=== PATIENT | male | born 1970 | race Caucasian/White ===

== ENCOUNTER 2016-12-11 22:55 | Emergency (ER) | payer BC ==
[~2016-12-11] VITALS: Ht 177.8 cm; Wt 89.3 kg
[2016-12-11 23:02] VITALS: TEMP 36.7; Ht 177.8 cm; Wt 89.3 kg
[2016-12-12 00:45] LABS: BASO % 0.5 %; BASO ABS # 0.03 K/uL (0-0.2); COMPLETE YES; EOS % 2.6 %; HEMATOCRIT 44.2 % (42-52); IG% 0.3 %; LYMPH % 34.6 %; LYMPH ABS # 2.27 K/uL (1.2-3.4); MEAN CELL VOLUME 85.2 fL (80-100); MEAN CORPUSCULAR HEMOGLOBIN 30.3 pg (25-34); MEAN CORPUSCULAR HGB CONC 35.5 g/dl (32-36); MEAN PLATELET VOLUME 11.7 fL (7.4-10.4); MONO % 11.7 %; NEUT % 50.3 %; PLATELET COUNT 174 K/uL (130-400); RED BLOOD COUNT 5.19 M/uL (4.7-6.1); WHITE BLOOD COUNT 6.56 K/uL (4.8-10.8)
[2016-12-12 00:46] LABS: POINT OF CARE TROPONIN I < 0.030 ng/ml (0-0.045)
[2016-12-12 01:02] LABS: ALT/SGPT 43 U/L (12-78); AST/SGOT 17 U/L (15-37); BLOOD UREA NITROGEN 11 mg/dl (7-18); BUN/CREATININE RATIO 14.4 (10-20); CALCIUM 8.4 mg/dl (8.5-10.1); CARBON DIOXIDE 25 mmol/L (21-32); CHLORIDE 109 mmol/L (98-107); CREATININE 0.77 mg/dl (0.60-1.40); GLUCOSE 91 mg/dl (70-99); POTASSIUM 3.5 mmol/L (3.5-5.1); SODIUM 141 mmol/L (136-145)
[2016-12-12 01:07] LABS: ALKALINE PHOSPHATASE 94 U/L (45-117)
[2016-12-12 02:40] VITALS: BP 133/75; PULSE 63; O2SAT 98
--- NOTE | 2016-12-12 06:12 | EMERGENCY ROOM VISIT NOTE ---
History First contact with patient: 23:30 Chief Complaint: CHEST PAIN Stated Complaint: CHEST PAIN/TIGHTNESS History of Present Illness The patient is a 46 year old male who presents to the Emergency Room with complaints of intermittent chest pain for the past few weeks. Patient states today he was wrestling with his friend and afterwards he developed some chest discomfort currently 5 out of 10. Nothing makes it better or worse. This is nonexertional. Patient denies dyspnea, radiating pain, jaw pain, neck pain, back pain, abdominal pain, leg pain or swelling. Patient does not routinely see the doctor. He chews tobacco. Patient denies history of high blood pressure, cholesterol, diabetes. He does have a family history of heart disease with his father having a heart attack in his 50s. No prior cardiac testing. No recent travel. Review of Systems See HPI for pertinent positives & negatives. A total of 10 systems reviewed and were otherwise negative. Past Medical/Surgical History Appendectomy Social History Smoking Status: Never Smoker Smokeless Tobacco Use: Yes Alcohol Use: occasionally Drug Use: none Marital Status: Housing Status: lives with family Occupation Status: employed Current/Historical Medications No Active Prescriptions or Reported Meds Physical Exam Vital Signs Date Time Temp Pulse Resp B/P (MAP) Pulse Ox O2 Delivery O2 Flow Rate FiO2 12/12/16 02:40 63 18 133/75 98 Room Air 12/12/16 01:04 69 18 118/83 12/11/16 23:46 78 12/11/16 23:32 97 Room Air 12/11/16 23:02 36.7 80 19 130/84 96 Room Air Pain Rating (0-10): 0 Physical Exam VITALS: Vitals are noted on the nurse's note and reviewed by myself. Vital signs stable. GENERAL: Pleasant male, in no acute distress, nondiaphoretic, well-developed well-nourished. SKIN: The skin was without rashes, erythema, edema, or bruising. There is no tenting of the skin. Capillary reflex less than 2 seconds. HEAD: Normocephalic atraumatic. EARS: External auditory canals clear, tympanic membranes pearly fontenot without erythema or effusion bilaterally. EYES: Pupils equal round and reactive to light and accommodation. Conjunctivae without injection, sclerae without icterus. Extraocular movements intact. NOSE: Patent, turbinates without inflammation or discharge. MOUTH: Mucous membranes moist. Pharynx without erythema or exudate. Uvula midline. Airway patent. Tongue does not deviate. NECK: Supple without nuchal rigidity. No lymphadenopathy. No thyromegaly. Cervical spine is nontender. No JVD. HEART: Regular rate and rhythm without murmurs gallops or rubs. Chest nontender to palpation LUNGS: Clear to auscultation bilaterally without wheezes, rales or rhonchi. No dullness to percussion. No retractions or accessory muscle use. ABDOMEN: Positive bowel sounds x 4. Normal tympanic percussion. Soft, nontender, without masses or organomegaly. [place] sign negative. No guarding or rebound tenderness. MUSCULOSKELETAL: No muscle atrophy, erythema, or edema noted. NEURO: Patient was alert and oriented to person place and time. Normal sensation to light and sharp touch. No focal neurological deficits. Medical Decision & Procedures Laboratory Results 12/12/16 00:22 Red Blood Count 5.19, Mean Corpuscular Volume 85.2, Mean Corpuscular Hemoglobin 30.3, Mean Corpuscular Hemoglobin Concent 35.5, Mean Platelet Volume 11.7, Neutrophils (%) (Auto) 50.3, Lymphocytes (%) (Auto) 34.6, Monocytes (%) (Auto) 11.7, Eosinophils (%) (Auto) 2.6, Basophils (%) (Auto) 0.5, Neutrophils # (Auto ) 3.30, Lymphocytes # (Auto) 2.27, Monocytes # (Auto) 0.77, Eosinophils # (Auto ) 0.17, Basophils # (Auto) 0.03 12/12/16 00:22 Test 12/12/16 00:22 12/12/16 00:28 12/12/16 02:27 White Blood Count 6.56 K/uL (4.8-10.8) Red Blood Count 5.19 M/uL (4.7-6.1) Hemoglobin 15.7 g/dL (14.0-18.0) Hematocrit 44.2 % (42-52) Mean Corpuscular Volume 85.2 fL (80-100) Mean Corpuscular Hemoglobin 30.3 pg (25-34) Mean Corpuscular Hemoglobin Concent 35.5 g/dl (32-36) Platelet Count 174 K/uL (130-400) Mean Platelet Volume 11.7 fL (7.4-10.4) Neutrophils (%) (Auto) 50.3 % Lymphocytes (%) (Auto) 34.6 % Monocytes (%) (Auto) 11.7 % Eosinophils (%) (Auto) 2.6 % Basophils (%) (Auto) 0.5 % Neutrophils # (Auto) 3.30 K/uL (1.4-6.5) Lymphocytes # (Auto) 2.27 K/uL (1.2-3.4) Monocytes # (Auto) 0.77 K/uL (0.11-0.59) Eosinophils # (Auto) 0.17 K/uL (0-0.5) Basophils # (Auto) 0.03 K/uL (0-0.2) RDW Standard Deviation 39.7 fL (36.4-46.3) RDW Coefficient of Variation 12.8 % (11.5-14.5) Immature Granulocyte % (Auto) 0.3 % Immature Granulocyte # (Auto) 0.02 K/uL (0.00-0.02) Anion Gap 7.0 mmol/L (3-11) Est Creatinine Clear Calc Drug Dose 134.8 ml/min Estimated GFR () 126.1 Estimated GFR (Non- 108.8 BUN/Creatinine Ratio 14.4 (10-20) Calcium Level 8.4 mg/dl (8.5-10.1) Total Bilirubin 0.5 mg/dl (0.2-1) Direct Bilirubin < 0.1 mg/dl (0-0.2) Aspartate Amino Transf (AST/SGOT) 17 U/L (15-37) Alanine Aminotransferase (ALT/SGPT) 43 U/L (12-78) Alkaline Phosphatase 94 U/L (45-117) Troponin I < 0.015 ng/ml (0-0.045) Total Protein 7.0 gm/dl (6.4-8.2) Albumin 3.8 gm/dl (3.4-5.0) Lipase 138 U/L (73-393) Bedside D-Dimer 91 ng/mlFEU (0-450) Bedside Troponin I < 0.030 ng/ml (0-0.045) ED Course Prior records/ancillary studies reviewed. Triage Nursing notes reviewed. Additional history obtained from family. The patient's history was concerning for chest pain. Differential diagnosis: Etiologies such as cardiac ischemia, aortic dissection, pulmonary embolism, pneumonia, pneumothorax, musculoskeletal, infections, pericarditis, myocarditis , esophageal rupture, gastrointestinal, as well as others were entertained. Physical examination: As above. ER treatment provided: Patient was observed On reassessment the patient felt better. Diagnostic interpretation by me: The electrocardiogram was negative for pathologic change. Normal sinus, normal intervals, no acute ST-T wave changes. Impression normal sinus rhythm interpreted by myself The labs revealed negative troponin 2 that was greater than 2 hours apart Imaging studies: Chest x-ray with no acute consolidation, pneumothorax or free air per my interpretation Exam and history seem consistent with chest pain. Patient had a normal EKG. 2 troponins that were negative greater than 2 hours apart. Patient was offered admission for chest pain rule out and declined. Case management will make follow-up ranges of cardiology for outpatient testing. Patient was requesting this instead. I felt this is reasonable option. Patient was informed of that I cannot rule out him having a heart attack without doing further testing. He understands risks involved. By the evaluation outlined above emergent etiologies such as cardiac ischemia, aortic dissection, pulmonary embolism, pneumonia, pneumothorax, infections, pericarditis, myocarditis, gastrointestinal, as well as others were deemed relatively unlikely. The pt informed about the findings as listed above. All questions were answered and pleased with the treatment. Return instructions were outlined and the patient was discharged in stable condition. Referral: The patient was referred to cardiology and primary care physician for follow-up in 2 to 3 days for a recheck of the current condition. Case reviewed with my attending Medical Decision As above Medication Reconcilliation Current Medication List: was personally reviewed by me Blood Pressure Screening Patient's blood pressure: Normal blood pressure Impression Primary Impression: Precordial chest pain Departure Information Dispostion Home / Self-Care Condition GOOD Prescriptions No Active Prescriptions or Reported Meds Forms HOME CARE DOCUMENTATION FORM, IMPORTANT VISIT INFORMATION Patient Instructions Chest Pain - [facility], [facility] Additional Instructions Case management should be contacting you on Tuesday to make a follow-up appointment with cardiology. If you do not hear by them by noon, then call the ER. Ibuprofen(Motrin, Advil) may be used for fever or pain. Use 600mg every six hours as needed. Take with food. Avoid using more than 2400mg in a 24 hour period. Do not use 2400mg per day for more than three consecutive days without physician direction. Prolonged inappropriate use can lead to stomach upset or ulcers. (AND/OR) Acetaminophen(Tylenol) may be used for fever or pain. Use 1000mg every six hours as needed. Avoid using more than 3000mg in a 24 hour period. Rest and drink plenty of fluids as tolerated. Continue current medications. Avoid strenuous activities and anything that worsens your pain. Resume normal activities once your symptoms resolve. Return to the ER immediately for worsening or persistent chest pain, abdominal pain, vomiting, fevers, chest pains, difficulty breathing, worsening of your condition, or as needed. Follow up with your primary physician and cardiology in 2-3 days for a recheck of your current condition.
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
== END 2016-12-12 03:05 | disposition home or self-care (01) ==
LOC: C.EDB 22:56 → C.EDC 12-12 03:05
DX: R07.2 Precordial pain (principal); Z82.49 Family history of ischemic heart disease and other diseases of the circulatory system

== ENCOUNTER 2017-09-17 13:15 | Emergency (ER) | payer BC ==
[~2017-09-17] VITALS: Ht 177.8 cm; Wt 91.2 kg
[2017-09-17 13:17] VITALS: TEMP 36.8; Ht 177.8 cm; Wt 91.2 kg
[2017-09-17] MEDS ORDERED: LIDOCAINE HCL 1% 20 ML VIAL ONE (13:30)
[2017-09-17] MEDS ORDERED: TRAMADOL HCL 50 MG TAB PO STA (13:37)
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
[2017-09-17] MEDS ORDERED: DIPHTHERIA/TETANUS/PERTUSSIS 0.5 ML SYR/VIAL IM. ONE (14:15)
[2017-09-17] MEDS ORDERED: CEFTRIAXONE SOD 350MG/ML 1 GM VIAL IM STA (14:17)
[2017-09-17] MEDS ORDERED: CIPROFLOXACIN 500 MG TAB PO STA (14:17)
[2017-09-17] MEDS ORDERED: CIPR-255 PO (15:00)
[2017-09-17] MEDS ORDERED: HYDR-5688 PO (15:00)
[2017-09-17 15:33] VITALS: BP 120/67; PULSE 58; O2SAT 96
== END 2017-09-17 15:34 | disposition home or self-care (01) ==
LOC: C.EDB 13:16
DX: S62.602B Fracture of unspecified phalanx of right middle finger, initial encounter for open fracture (principal); W34.00XA Accidental discharge from unspecified firearms or gun, initial encounter